=== PATIENT | male | born 1960 | race Caucasian/White ===

== ENCOUNTER 2023-03-30 07:51 | Emergency (ER) | payer BC, OTHER ==
[~2023-03-30] VITALS: Ht 177.8 cm; Wt 77.0 kg
[~2023-03-30 07:51] MED LIST: ADV50100 IH; ALBU8.5H4 IH; ALPR-304 PO; AMIO200T42 PO; COU1T PO; FLO0.4C PO; FURO80TA87 PO; HYDR-3965 PO; HYDR-4383 PO; LACT10SO3 PO; METO2.5T15 PO; ONDA4TAB6 PO; POTA20TA84 PO
[2023-03-30 08:01] VITALS: TEMP 97
[2023-03-30 08:34] LABS: ALANINE AMINOTRANSFERASE 52 U/L (12-78); ALBUMIN 3.9 G/DL (3.4-5.0); ALBUMIN/GLOBULIN RATIO 1.2 (1.1-1.5); ALKALINE PHOSPHATASE 104 IU/L (46-116); ANION GAP 12 (8-16); ASPARTATE AMINO TRANSFERASE 27 U/L (10-37); BILIRUBIN,TOTAL 0.4 MG/DL (0.1-1.0); BLOOD UREA NITROGEN 24 MG/DL (7-18); BUN/CREATININE RATIO 23.5 (10.0-20.0); CHLORIDE 103 MMOL/L (99-107); CREATININE 1.02 MG/DL (0.60-1.10); GLUCOSE 138 MG/DL (70-104); POTASSIUM 3.6 MMOL/L (3.5-5.1); SODIUM 141 MMOL/L (135-145); TOTAL CARBON DIOXIDE 25.8 MMOL/L (24-32); TOTAL PROTEIN 7.1 G/DL (6.4-8.2); eCRCL 77 ML/MIN; eGFR 74 ML/MIN
[2023-03-30 08:35] LABS: BASOPHILS % (AUTO) 0.3 % (0-1); EOSINOPHILS # (AUTO) 0.3 X10'3 (0-0.9); EOSINOPHILS % (AUTO) 2.1 % (0-6); HEMATOCRIT 48.5 % (42.0-52.0); HEMOGLOBIN 16.1 g/dl (14.0-17.9); LYMPHOCYTES % (AUTO) 22.6 % (21-51); MEAN CORPUSCULAR HEMOGLOBIN 28.6 PG (27.0-31.0); MEAN CORPUSCULAR HGB CONC 33.1 g/dL (33.0-36.5); MEAN CORPUSCULAR VOLUME 86.1 FL (78-98); MEAN PLATELET VOLUME 7.8 FL (7.4-10.4); MONOCYTES # (AUTO) 1.2 X10'3 (0-0.9); MONOCYTES % (AUTO) 9.2 % (2-12); NEUTROPHILS # (AUTO) 8.6 X10'3 (1.8-7.7); NEUTROPHILS % (AUTO) 65.8 % (42-75); PLATELET COUNT 304 X10'3 (140-440); RED BLOOD COUNT 5.63 X10'6 (4.70-6.10); RED CELL DISTRIBUTION WIDTH 14.7 % (11.5-14.5)
[2023-03-30 08:42] LABS: PRO BRAIN NATRIURETIC PEPTIDE 71 PG/ML (0-125)
[2023-03-30] MEDS ORDERED: LORazepam 2 mg/ml vial IV ONE (09:30)
[2023-03-30] MEDS ORDERED: PRED20TA PO (13:02)
[2023-03-30 13:13] VITALS: BP 134/87; PULSE 94; RESP 16; O2SAT 99
== END 2023-03-30 13:13 | disposition home or self-care (01) ==
LOC: ER 07:52
DX: J98.01 Acute bronchospasm (principal); I11.0 Hypertensive heart disease with heart failure; J45.909 Unspecified asthma, uncomplicated; E78.00 Pure hypercholesterolemia, unspecified; Z88.8 Allergy status to other drugs, medicaments and biological substances; Z79.899 Other long term (current) drug therapy; Z79.1 Long term (current) use of non-steroidal anti-inflammatories (NSAID); Z79.2 Long term (current) use of antibiotics
CPT/HCPCS: 36415; 71045; 80053; 83880; 84484; 85025; 93005; 96374; 99285; J2060

== ENCOUNTER 2024-10-21 19:37 | Emergency (ER) | payer MEDICARE, BC, OTHER ==
[~2024-10-21] VITALS: Ht 177.8 cm; Wt 72.8 kg
[~2024-10-21 19:37] MED LIST changes: -FLO0.4C PO; +LACT-373 PO; -LACT10SO3 PO; +TAMS-55 PO
--- NOTE | 2024-10-21 19:59 | Physician Documentation ---
History of Present Illness ~ Chief Complaint: Stroke Alert Stated Complaint: POSS STROKE Time Seen by MD: 19:53 Primary Medical Doctor: Zachariah patel (Cardio) HPI 64-year-old male, history of heart transplant, who presents with right-sided facial symptoms He tells me he was last normal last night. When he woke up this morning he felt like something was off on his face. His noticed that his speech seems slightly off. He denies really having a headache. He denies any visual changes. No tingling numbness or weakness to his extremities. No problems with dexterity with his hands. No recent infectious symptoms including in the past couple of weeks. No history of stroke or seizures Medication Reconciliation Allergies: Coded Allergies: influenza virus vaccine, specific (Verified Allergy, Intermediate, 03/30/23) Scheduled Amiodarone (Cordarone), 100 MG PO HS, (Reported) Furosemide* (Lasix*), 1 TAB PO DAILY, (Reported) Furosemide* (Lasix*), 1 TAB PO DAILY, (Reported) Hydrocodone/Acetaminophen ([place] 5-325 Tablet), 1-2 TABLET PO Q6H Metolazone (Metolazone), 2.5 MG PO DAILY, (Reported) Ondansetron Hcl (Zofran), 1 TABLET PO Q6H Potassium CL* (Klor-Con M20*), 2 TAB PO DAILY, (Reported) Prednisone* (Prednisone*), 3 TAB PO DAILY Tamsulosin Hcl* (Flomax*), 1 CAP PO DAILY Valacyclovir HCl (Valacyclovir), 1 TAB PO Q8H Warfarin Sodium* (Coumadin*), 1 TAB PO Q2D, (Reported) Warfarin Sodium* (Coumadin*), 2 TAB PO Q2D, (Reported) Scheduled PRN Albuterol Inhaler* (Albuterol Inhaler*), 1 PUFF IH QID PRN for SOB or wheezing, (Reported) Alprazolam* (Xanax*), 0.25 MG PO BID PRN for anxiety, (Reported) Fluticasone/Salmeterol* (Advair 100-50 Diskus*), 1 INH IH PRN PRN, (Reported) Hydrocodone Bit/Acetaminophen 5/325 MG ([place] 5/325 MG), 1 TAB PO HS PRN for moderate or severe pain, (Reported) Lactulose (Lactulose), 15 ML PO DAILY PRN for constipation, (Reported) Past Medical History Past Medical History: Arrhythmia, Atrial Fibrillation, Congestive Heart Failure, High Cholesterol, Hypertension, Asthma, COPD, Liver Disease, Renal Disease, Gout Past Surgical History: angioplasty, appendectomy, tonsillectomy Other Past Surgical History: heart transplant 10/2014 Alcohol Use: None Drug Use: none Lives with: Spouse Review of Systems Neurological: Reports: speech problem, right sided weakness Physical Exam Vital Signs: Temperature: 98.1, Source: Temporal, Heart Rate: 89, Respiratory Rate: 16, BP: 127/73, Pulse Oximetry: 98, Weight: 72.750 Oxygen Flow Rate: 0 General Appearance General: This is a pleasant and overall well-appearing middle-aged man, able to ambulate into the room HEENT: The patient appears to have some facial asymmetry. He is able to wrinkle his forehead, open his eyes and squeeze them shut, and smile. He does have some mild right mouth droop. When he is talking to me, the right side of his face does not move symmetric to the left side of his face. He has normal sensation to light touch in all distributions of the face. Speech is relatively clear. Tongue protrudes symmetric. Heart: Regular rate and rhythm, normal-appearing peripheral perfusion Lungs: normal work of breathing, normal oxygen saturation on room air Extremities: Warm and well-perfused Neuro: Alert and oriented. Facial findings as above. Otherwise normal sensation to light touch in all 4 extremities, full strength in all 4 extremities. No other focal deficits. Psychiatric: Calm and cooperative with exam Progress Results/Orders Results/Orders Orders - JOYCE FARRAR MD Monitor (10/21/24 19:47) 2 Large Bore Ivs (10/21/24 19:47) Chest,Single View (10/21/24 20:23) Accucheck (10/21/24 19:47) Ct Stroke Alert (10/21/24 19:47) [place] Prov.Neuro Consult (10/21/24 19:47) Cta Neck/Head (10/21/24 ) Completed Orders - JOYCE FARRAR MD Cbc/Diff (10/21/24 19:47) Electrocardiogram (10/21/24 19:47) Chest,Single View (10/21/24 20:23) Ct Stroke Alert (10/21/24 19:47) BMP (10/21/24 19:47) PTT (10/21/24 19:47) Pt Inr (10/21/24 19:47) Iohexol 350mg/Ml 100ml (Omnipaque 350mg/ (10/21/24 19:55) Cta Neck/Head (10/21/24 ) Prednisone Tablet (Prednisone Tablet) (10/21/24 22:35) Valacyclovir Tablet (Valtrex Tablet) (10/21/24 22:35) Vital Signs 10/21/24 10/21/24 10/21/24 10/21/24 19:39 22:11 22:15 23:35 Temp 98.1 98.1 98.1 Pulse 89 86 91 Resp 16 20 14 21 B/P (MAP) 127/73 103/68 (80) 117/72 Pulse Ox 98 96 96 O2 Flow Rate 0 0 Laboratory Tests Test 10/21/24 19:51 10/21/24 19:52 Glucometer 135 H White Blood Count 9.0 Red Blood Count 5.06 Hemoglobin 14.5 Hematocrit 43.0 Mean Corpuscular Volume 84.9 Mean Corpuscular Hemoglobin 28.6 Mean Corpuscular Hemoglobin Concent 33.7 Red Cell Distribution Width 14.9 H Platelet Count 256 Mean Platelet Volume 8.2 Neutrophils (%) (Auto) 67.8 Lymphocytes (%) (Auto) 20.9 L Monocytes (%) (Auto) 8.5 Eosinophils (%) (Auto) 2.5 Basophils (%) (Auto) 0.3 Neutrophils # (Auto) 6.1 Lymphocytes # (Auto) 1.9 Monocytes # (Auto) 0.8 Eosinophils # (Auto) 0.2 Basophils # (Auto) 0.0 CBC Comment Prothrombin Time 10.9 INR International Normalized Ratio 1.1 Activated Partial Thromboplast Time 26 Coagulation Comments Sodium Level 139 Potassium Level 4.1 Chloride Level 105 Carbon Dioxide Level 26.3 Anion Gap 8 Blood Urea Nitrogen 21 H Creatinine 1.22 H Estimated GFR/1.73 m2 60 BUN/Creatinine Ratio 17.2 Glucose Level 142 H Calcium Level 8.8 Albumin 4.4 Chemistry Comments EKG/XRAY/CT/US/VASC/MRI EKG : Additional Comment I personally interpreted the EKG and this shows: Sinus rhythm, incomplete right bundle branch block, rate 94, QTC 459, no STEMI Chest X-Ray : Additional Comments I personally reviewed the x-ray, and it shows: No focal consolidation, pulmonary edema, or pneumothorax CT : Impression I personally reviewed the CT scan, and this shows CT head: No intracranial hemorrhage, mass, or edema CTA head and neck: No large vessel occlusion or significant stenosis Consults/PCP Consults/PCP : Time Call Requested: 19:56 Additional Comment Spoke to [facility], relayed the story, they will evaluate the patient. 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 If the imaging is normal, the patient can be discharged with treatment for Pickard's palsy. Medical Decision Making Differential Dx:Considerations: Include: Pickard's Palsey, CVA, Electrolyte imbalance, Hypoglycemia, Mass lesion, Subarachnoid Hemorrhage, TIA Assessment 64-year-old male presenting with right sided facial symptoms. He was seen in triage and stroke protocol was started prior to my evaluation. On my evaluation he does have some right-sided facial asymmetry, but no other focal neurologic deficits. This could represent either a stroke or possibly Pickard's palsy. Onset of symptoms was during the night so he is not a tPA candidate. Stroke Neurology was immediately consulted. His workup was unremarkable including no abnormality on his brain imaging. 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 He will be discharged with a course of steroids. He will also be treated with antivirals given his immunocompromise status. He was given home care instructions including eye protection. Return precautions given. Departure Time of Disposition: 22:30 Disposition: 01 HOME / SELF CARE / HOMELESS Impression: Primary Impression: Facial paralysis/[place] palsy Condition: Stable Referrals: NO PRIMARY CARE PROVIDER (PCP) Prescriptions Prednisone* (Prednisone*) 20 Mg Tablet 3 TAB PO DAILY for 6 Days, #18 TAB Prov: JOYCE FARRAR MD 10/21/24 Valacyclovir HCl (Valacyclovir) 1,000 Mg Tablet 1 TAB PO Q8H for 6 Days, #18 TAB 0 Refills Prov: JOYCE FARRAR MD 10/21/24 Education Educated: Patient Educated regarding: diagnosis, treatment, need for follow up Signature Scribe Signature: curtis Attestation: JOYCE Elizalde MD Oct 21, 2024 19:59
[2024-10-21 20:02] LABS: MEAN PLATELET VOLUME 8.2 FL (7.4-10.4); RED CELL DISTRIBUTION WIDTH 14.9 % (11.5-14.5)
[2024-10-21 20:07] LABS: CREATININE 1.22 MG/DL (0.60-1.10); TOTAL CARBON DIOXIDE 26.3 MMOL/L (24-32); eCRCL 62 ML/MIN; eGFR 60 ML/MIN
[2024-10-21 20:10] LABS: APTT 26 SECONDS (22-32); INR 1.1 INR
--- NOTE | 2024-10-21 20:17 | ELECTROCARDIOGRAPH REPORT ---
[facility] Test Date: 2024-10-21 Test Time: 20:15:09 Pat Name: MARLIN AYON Department: [facility] Patient ID: [id number] Room: Gender: M Employment Agency Manager: NORA : 1960 Requested By: JOYCE FARRAR Order Number: [id number] Reading MD: Measurements Intervals [place] Rate: 94 P: 43 NE: 159 QRS: 13 QRSD: 113 T: 80 QT: 367 QTc: 459 Interpretive Statements Sinus rhythm Incomplete right bundle branch block ST elevation, consider inferior injury Please click the below link to view image of tracing.
--- NOTE | 2024-10-21 20:31 | RADIOLOGY REPORT ---
EXAM: CT CT STROKE ALERT INDICATION: Stroke Alert TECHNIQUE: CT of the head without intravenous contrast. Radiation Dose Information: CT Dose: CTDI volume is 65.28 mGy. Dose-length product is 1263.84 mGy*cm The dose indicators for CT are the volume Computed Tomography (CT) Dose Index (CTDIvol) and the Dose Length Product (DLP), and are measured in units of mGy and mGy-cm, respectively. These indicators are not patient dose, but values generated from the CT scanner acquisition factors. The report includes radiation exposure data for exposures received during this examination. COMPARISON: None FINDINGS: The cerebral parenchyma appears to be normal configuration and attenuation. The ventricles, cisterns , and sulci appear age-appropriate. There is no evidence for acute territorial infarct, hemorrhage, or mass effect. The orbits are normal. The visualized paranasal sinuses and mastoid air cells are clear. The soft t issues and osseous structures appear within normal limits. IMPRESSION: 1. No acute territorial infarct, intracranial hemorrhage, or mass effect. If clinical symptoms persis t, MRI may be beneficial in further evaluation. Critical Findings: Stroke Alert Findings discussed with JOYCE FARRAR at 10/21/2024 10:31 PM [employer], who acknowledged receipt and unde rstanding of the findings.
--- NOTE | 2024-10-21 20:45 | RADIOLOGY REPORT ---
INDICATION: STROKE COMPARISON: None TECHNIQUE:CTA neck with intravenous contrast. 3D/MIP image postprocessing was performed and images we re used for interpretation and reporting. Radiation Dose Information: CT Dose: CTDI volume is 14.14 mGy. Dose-length product is 560.66 mGy*cm FINDINGS: CTA neck: The visualized thoracic aortic arch and proximal great vessels are unremarkable. There is c alcified plaque at the origin of the bilateral proximal internal carotid arteries without hemodynamic ally significant stenosis. The left common, internal and external carotid arteries are otherwise with in normal limits. The right common, internal and external carotid arteries are otherwise within vicky l limits. The cervical segments of the right and left vertebral arteries are within normal limits. Th e limited visualized lung apices are clear. The surrounding soft tissues and osseous structures are o therwise unremarkable. CTA head: The caliber and course of the distal internal carotid arteries is unremarkable. No evidence of high-grade stenosis or occlusion of the proximal branch vessels of the [place] of [place]. No evide nce of large aneurysm or arteriovenous malformation. IMPRESSION: 1. No evidence of hemodynamically significant cervical stenosis or dissection. 2. All CT scans at this medical facility are performed using dose modulation techniques as appropriat e to a performed exam including the following: Automated exposure control was utilized; adjustment of the MA and/or KV according to patient size; and use of iterative reconstruction technique.
--- NOTE | 2024-10-21 20:57 | RADIOLOGY REPORT ---
CHEST RADIOGRAPH Indication: Stroke Alert Technique: Single frontal view of the chest was obtained Comparison: DI CHEST,SINGLE VIEW on DOS: 03/30/23 FINDINGS: Lines and Tubes: None Lungs: No focal consolidation. Mild interstitial prominence. Pleura: No effusion. No pneumothorax. Cardiomediastinal contours: Unremarkable. Midline sternotomy wires are noted with fracture of the up per wires.. [id number] atherosclerotic calcification and uncoiling of the aorta. Bones: No acute osseous abnormality. IMPRESSION: Mild pulmonary vascular congestion.
--- NOTE | 2024-10-21 21:12 | [facility] CONSULT REPORT ---
[facility] Procedure Note [facility] Procedure Note Consult [facility] Note # Demographics Consult Type: Acute Stroke Level 2 (4.5-24 hrs) Patient Location: Emergency Room First Name: MARLIN Last Name: Date of : 1960 Age: 64 Gender: Male Facility: [facility] Time of Initial Page (): 10/21/2024 19:53 Time of Return Call (): 10/21/2024 19:53 # HPI History: 64yom with heart transplant who woke up feeling "strange", has R sided facial droop. first noticed mild R facial droop last night, then this AM pt noticed it was hard to close his R eye. Last Known Normal: - I have collected independent history specific to time last normal or last known well. We have collaborated with the provider and at this time, we have the most current timeline with the information that is available. Previous night, around 8PM # Scores Time of exam and NIHSS (): 10/21/2024 20:05 Level of Consciousness 1a: [0] = Alert; keenly responsive LOC Questions 1b: [0] = Answers both questions correctly LOC Commands 1c: [0] = Performs both tasks correctly Best Gaze 2: [0] = Normal Visual 3: [0] = No visual loss Facial Palsy 4: [1] = Minor paralysis Motor Arm Left 5a: [0] = No drift Motor Arm Right 5b: [0] = No drift Motor Leg Left 6a: [0] = No drift Motor Leg Right 6b: [0] = No drift Limb Ataxia 7: [0] = Absent Sensory 8: [0] = Normal Best Language 9: [0] = No aphasia Dysarthria 10: [1] = Cafz-lc-[id number] dysarthria Extinction and Inattention 11: [0] = No abnormality NIHSS Total: 2 # Exam Cranial Nerves: Forehead weakness in addition to facial palsy # ROS Eyes: - no diplopia ENT: - no difficulty swallowing # Data Head CT: - no bleed - preliminarily reviewed by me, please refer to radiology read for official reading CTA Head: - no large vessel occlusion - preliminarily reviewed by me, please refer to radiology read for official reading CTA Neck: - patent vessels - preliminarily reviewed by me, please refer to radiology read for official reading # Assessment Impression: - [place] Palsy # Plan Thrombolytic/Intervention: NOT IV Thrombolysis or IA Intervention candidate Thrombolytic Exclusion: > 4.5 hours Intraarterial Exclusion: - clinical exam not consistent with presence of large vessel occlusion (LVO), can reconsider if LVO found on vascular imaging Imaging: (urgency: STAT): - CT Angiogram Head and CT Angiogram Neck AND call back with results if abnormal Medication: Prednisone 60mg x 5 days followed by a 5 day taper by 10mg per day Valacyclovir 1000mg TID x 1 week (or acyclovir 400mg 5x a day for 1 week) Other: - If patient has any neurological deterioration please call me back immediately Additional Recommendations: Eye care includes artificial tear drops four times daily or up to hourly if needed Followup with PCP - strict return to ED precautions if any worsening neurological symptoms that may warrant MR brain # Logistics Attestation of consult completion: The patient is located at: [facility]. Facility staff participated in the visit. I performed this telemedicine visit from my offsite office utilizing interactive 2 way audio and visual telecommunication technology. Total time spent in telemedicine encounter: I spent 23 minutes reviewing clinical data and/or imaging, obtaining history, examining the patient, communicating with the onsite care team, and in preparation of this report. # Demographics First Name: MARLIN Last Name: Facility: [facility] Neuro Consult Order placed for: Yes ERIKA HERNANDEZ MD Oct 21, 2024 21:11
[2024-10-21] MEDS ORDERED: VALA100031 PO (22:38)
[2024-10-21] MEDS ORDERED: PRED20TA PO (22:38)
[2024-10-21 23:35] VITALS: BP 117/72; PULSE 91; RESP 21; TEMP 98.1; O2SAT 96
== END 2024-10-21 23:38 | disposition home or self-care (01) ==
LOC: ER 19:38
DX: G51.0 Bell's palsy (principal); J44.9 Chronic obstructive pulmonary disease, unspecified; E78.00 Pure hypercholesterolemia, unspecified; I11.0 Hypertensive heart disease with heart failure; I50.9 Heart failure, unspecified; I48.91 Unspecified atrial fibrillation; Z88.7 Allergy status to serum and vaccine; Z90.49 Acquired absence of other specified parts of digestive tract; Z79.899 Other long term (current) drug therapy
CPT/HCPCS: 36415; 70450; 70496; 70498; 71045; 80048; 82948; 85025; 85610; 85730; 93005; 99285; J7512; Q9967